=== PATIENT | male | born 1995 | race Caucasian/White ===

== ENCOUNTER 2016-10-13 09:10 | Outpatient (CLI) | payer BC, MEDICAID ==
[2016-10-13] VITALS (10 sets, daily range): BP systolic 126–144; BP diastolic 87–99; PULSE 60–84; RESP 14–27; TEMP 98.3; O2SAT 100; Ht 167.6 cm; Wt 53.2 kg
[~2016-10-13] VITALS: Ht 167.6 cm; Wt 53.2 kg
--- NOTE | 2016-10-13 09:40 | NUR ---
ARRIVAL ARRIVES TO ROOM 132 ACCOMPANIED BY MOTHER AND FATHER. PATIENT ALERT AND ORIENTED TO PERSON ONLY. O2 ROOM AIR.
--- NOTE | 2016-10-13 09:50 | NUR ---
VITAL SIGNS PATIENT APPEARS AGITATED AND WOULD NOT ALLOW RN TO OBTAIN SPO2 AT THIS TIME. ALL OTHER VITALS OBTAINED.
[2016-10-13] MEDS ORDERED: SALINE FLUSH 10ml SYRINGE ONE (09:58)
[2016-10-13] MEDS ORDERED: IOHEXOL 300 MG/ML 75ml INJECTION ONE (09:58)
[2016-10-13] MEDS ORDERED: NORMAL SALINE 100 ML ONE (09:58)
[2016-10-13] MEDS ORDERED: FAMO40TA75 PO (10:10)
[2016-10-13] MEDS ORDERED: PERA4TAB PO (10:10)
[2016-10-13] MEDS ORDERED: CARB100T3 PO ×2 (10:10)
--- NOTE | 2016-10-13 10:10 | NUR ---
OFF UNIT OFF UNIT VIA WHEELCHAIR WITH JASSI QUEEN RN (SEDATION NURSE). O2 RA. IVL IN PLACE. PARENTS ACCOMPANIED PATIENT TO IMAGING DEPARTMENT. SAMMY SANCHEZ RN TO ASSUME CARE UPON PATIENT'S RETURN TO UNIT.
--- NOTE | 2016-10-13 10:40 | NUR ---
BACK TO UNIT PATIENT IS BACK TO UNIT AT THIS TIME. PATIENT WAS MOVED FROM IMAGING CART TO BED VIA SLIDE BOARD. PATIENT VITALS ARE STABLE AND IS ON ROOM AIR.
--- NOTE | 2016-10-13 10:45 | NUR ---
POST PROCEDURE VITALS THIS NURSE WAS ABLE TO OBTAIN VITALS EXCEPT FOR TEMPERATURE WHEN THE PATIENT CAME BACK FROM PROCEDURE. PATIENT APPEARED TO BE AGITATED WHEN ATTEMPTED.
[2016-10-13] MEDS ORDERED: ACETAMINOPHEN 325 MG TABLET PO PRN (11:00)
--- NOTE | 2016-10-13 11:30 | DI ---
Indication: ITS.REASON: WT LOSS R63.4 WT LOSS,R45.4, [id number] PROCEDURE: CT HEAD/CHEST/ABD/PELVIS W/C: Encounter: Initial Sedation: The patient required conscious sedation to be able to complete the exam. 2 mg of midazolam was administered intravenously by trained nursing personnel under my direct supervision. The patient was continuously monitored during the period of sedation and exam. Patient showed no evidence of complication during the sedation procedure and left the radiology department in stable condition. Please see the nursing record and patient's medical chart for further details. Comparison: None CT head with and without: Technique: Axial CT images through the head were performed without and with IV contrast. Iterative Reconstruction dose reducing technique was utilized. Contrast: Omnipaque 300 74 mL FINDINGS: The ventricles are of normal size, shape, and contour for the patient's age. The brainstem, cerebellum, and cerebral hemispheres have a normal morphology and CT attenuation. No hemorrhage, mass effect, mass lesions, or edema is evident. No areas of abnormal enhancement are seen. The visualized portions of the skull base, sinuses, and calvarium demonstrate no abnormality. IMPRESSION: Unremarkable head CT for the patient's age, both before and after contrast. CT chest, abdomen and pelvis with contrast: Comparison: None Technique: Axial CT images were performed through the chest, abdomen and pelvis after the administration of intravenous contrast. Coronal and sagittal two-dimensional reformats. Automated Exposure Control and Iterative Reconstruction dose reducing techniques were utilized. Contrast: Omnipaque 300 74 mL Findings: Chest: The lungs are clear. No pleural effusion or pneumothorax. The central airways are patent. No pulmonary nodules or masses. The thyroid gland is normal. No axillary or mediastinal adenopathy. Heart size is normal. No pericardial effusion. Great vessels are within normal limits. Abdomen/pelvis: The liver is normal. The gallbladder, spleen, pancreas and adrenal glands are normal. Right kidney is normal. Left kidney shows moderate hydronephrosis with a prominent extrarenal pelvis. There is abrupt tapering to normal caliber distal ureter best seen on coronal image #42. The mid to distal ureter cannot be accurately followed. There is no sign of an obstructing ureteral stone or mass. The bladder appears normal. No evidence of a bowel obstruction. Moderate stool in the colon. The appendix is normal. No obvious lymphadenopathy or mass seen in the abdomen or pelvis. Bone windows show severe rotoscoliosis of the thoracolumbar spine. Probable hemangiomas within the sacrum. Impression: Moderate left hydronephrosis which appears to be due to a ureteropelvic junction obstruction. The exact cause of the UPJ obstruction is not clear on this study. Urologic consultation is recommended. .
--- NOTE | 2016-10-13 11:54 | NUR ---
DISCHARGE PATIENT IS ALERT TO PERSON ONLY. PATIENT VITALS ARE STABLE AND PATIENT IS ON ROOM AIR. DISCHARGE INSTRUCTIONS INCLUDE: SIGNS AND SYMPTOMS OF INFECTION AT IV SITE, WHEN TO MAKE FOLLOW UP APPOINTMENT, ACTIVITY, DIET, AND CONTINUED MEDICATIONS. PERSONAL BELONGINGS RETURNED AND IV DISCONTINUED. PATIENT AMBULATED WITH THIS NURSE TO ER ENTRANCE. PATIENT WAS TRANSPORTED HOME BY PARENTS FOR CONTINUED CARE.
[2016-10-13] MEDS ORDERED: SALINE FLUSH 10ml SYRINGE IVF ONE (11:56)
[2016-10-13] MEDS ORDERED: MIDAZOLAM 2mg/2ml INJECTION IV ONE (11:56)
== END 2016-10-13 11:54 | disposition home or self-care (01) ==
LOC: IMA.BED 09:10 → SRG 09:26 → IMA.BED 11:54
PROVIDERS: ATTEND Radiology Diagnostic Radiology
DX: N13.30 Unspecified hydronephrosis (principal); R93.41 Abnormal radiologic findings on diagnostic imaging of renal pelvis, ureter, or bladder; R63.4 Abnormal weight loss; R45.4 Irritability and anger; R52 Pain, unspecified
CPT/HCPCS: 70470; 71260; 74177; J2250; J7050; Q9967